=== PATIENT | male | born 1965 | race Caucasian/White ===

== ENCOUNTER 2019-12-13 19:43 | Emergency (ER) | payer OTHER ==
[~2019-12-13] VITALS: Ht 167.6 cm; Wt 68.0 kg
[2019-12-13 19:49] VITALS: Ht 167.6 cm; Wt 68.0 kg
[2019-12-13 20:26] LABS: PLATELET COUNT 395 x10^3mcL (130-400); RED CELL DISTRIBUTION WIDTH 13.4 % (11.5-14.5)
[2019-12-13 20:27] LABS: BASOPHIL % 0 % (0-2)
[2019-12-13 20:34] LABS: CALCIUM 8.9 mg/dL (8.5-10.1); CARBON DIOXIDE 29.4 mmol/L (21-32); CHLORIDE SERUM 100 mmol/L (98-107); GFR1 > 60 mL/min; GLUCOSE SERUM 99 mg/dL (74-106); POTASSIUM SERUM 4.2 mmol/L (3.5-5.1); SODIUM SERUM 136 mmol/L (136-145)
[2019-12-13 20:39] LABS: ALKALINE PHOSPHATASE 91 U/L (46-116); ALT/SGPT 40 U/L (16-63); AST/SGOT 32 U/L (15-37); BILIRUBIN TOTAL 0.3 mg/dL (0.20-1.00); LIPASE 142 IU/L (73-393); TOTAL PROTEIN, SERUM 7.9 g/dL (6.4-8.2)
[2019-12-13 20:41] LABS: ALBUMIN 3.1 g/dL (3.4-5.0)
[2019-12-13 22:56] LABS: microscopic required? NO
[2019-12-13 23:14] LABS: UA SPECIFIC GRAVITY >=1.030 (1.005-1.035); urine erythrocyte NEGATIVE (NEGATIVE)
[2019-12-13 23:43] VITALS: BP 136/94
== END 2019-12-13 23:43 | disposition home or self-care (01) ==
LOC: ED 19:43
PROVIDERS: Emergency Medicine
DX: M54.5 Low back pain (principal); F10.129 Alcohol abuse with intoxication, unspecified; R10.9 Unspecified abdominal pain
CPT/HCPCS: J1885; J2270; J7030